=== PATIENT | male | born 1935 | race Caucasian/White ===

== ENCOUNTER 2017-12-03 16:32 | Emergency (ER) | payer MEDICARE ==
[2017-12-03 17:24] LABS: Bilirubin Negative (Negative); Blood, Urine Small (Negative); Clarity Clear (Clear); Glucose, Urine (Dipstick) Negative (Negative); Leukocyte Negative (Negative); Nitrite Negative (Negative); Protein, Urine (Dipstick) 30 mg/dL (Neg-Trace); Urobilinogen 0.2 mg/dL (0.2-1.0); pH, Urine 6.5 (5.0-9.0)
[2017-12-03 17:33] LABS: Bacteria/HPF Rare-Few HPF (None Seen); RBC/HPF 0-3 HPF (0-3); Squamous Epithelial None Seen HPF (0-3); WBC/HPF None Seen HPF (0-3)
[2017-12-03] MEDS ORDERED: Acetaminophen 500 MG TAB ONE (18:08)
--- NOTE | 2017-12-03 18:09 | RAD ---
PORTABLE CHEST: History: Cough, fever. Comparison: 01-14-14 FINDINGS: Heart size is within normal limits. There are chronic appearing lung changes seen. No focal infiltrat monalisa process. Right humeral prosthesis is present. IMPRESSION: Chronic lung change. POS: [facility]
== END 2017-12-03 18:11 | disposition home or self-care (01) ==
LOC: SCSER 16:32
DX: J11.1 Influenza due to unidentified influenza virus with other respiratory manifestations (principal); F17.200 Nicotine dependence, unspecified, uncomplicated; Z79.899 Other long term (current) drug therapy
CPT/HCPCS: 71045; 81003; 81015

== ENCOUNTER 2017-12-05 18:15 | Emergency (ER) | payer MEDICARE ==
--- NOTE | 2017-12-05 19:18 | RAD ---
PA AND LATERAL CHEST: 12/05/17 HISTORY: Cough. COMPARISON: 12/03/17 study. Heart size is within normal limits. There are atherosclerotic changes of the aorta. Chronic appearing lung changes are seen. I do not appreciate a definitive significant change since the previous exam. There is some question of whether some of the changes in the right mid lung field may be slightly inc reased. Differences could be technique related. IMPRESSION: Marked chronic lung change, not definitive infiltrate, although the changes in the right mid lung fie ld may be slightly increased. POS: [facility]
[2017-12-05 20:20] LABS: #Basophils 0.1 thou/uL (0.0-0.2); #Lymphocytes 1.3 thou/uL (1.20-3.40); #Monocytes 1.3 thou/uL (0.11-0.59); #Neutrophils 10.9 thou/uL (1.40-6.50); %Basophils 0.8 % (0.0-1.0); %Lymphocytes 9.3 % (21.0-51.0); %Monocytes 9.4 % (0.0-10.0); %Neutrophils 80.5 % (42.0-75.0); Hemoglobin 13.1 g/dL (14.0-18.0); Mean Corpuscular HGB CONC 33.6 g/dL (32.0-36.0); Mean Corpuscular Hemoglobin 31.6 pg (27.0-31.0); Mean Corpuscular Volume 93.9 fl (80.0-94.0); Mean Platelet Volume 9.1 fL (7.4-10.4); Platelet Count 130 thou/uL (130-400); Red Blood Cell (RBC) Count 4.16 mill/uL (4.70-6.10); White Blood Cell (WBC) Count 13.5 thou/uL (4.8-10.8)
[2017-12-05 20:34] LABS: ALT (SGPT) 19 U/L (8-55); AST (SGOT) 30 U/L (5-34); Albumin 3.5 g/dL (3.4-4.8); Alkaline Phosphatase 66 U/L (40-150); Anion Gap 16 mmol/L (10-20); BUN (Urea Nitrogen) 25 mg/dL (8.4-25.7); Bilirubin, Total 0.8 mg/dL (0.2-1.2); Calc. Creatinine Clearance 0 mL/min (70-130); Calcium 9.3 mg/dL (7.8-10.44); Carbon Dioxide 22 mmol/L (23-31); Chloride 102 mmol/L (98-107); Estimated GFR-MDRD 76; Globulin 3.2 g/dL (2.4-3.5); Glucose 134 mg/dL (83-110); Potassium 3.7 mmol/L (3.5-5.1); Protein, Total 6.7 g/dL (5.8-8.1); Sodium 136 mmol/L (136-145)
[2017-12-05] MEDS ORDERED: Azithromycin 250 MG TAB ONE (20:46)
== END 2017-12-05 22:32 | disposition home or self-care (01) ==
LOC: SCSER 18:15
DX: J11.1 Influenza due to unidentified influenza virus with other respiratory manifestations (principal); J44.9 Chronic obstructive pulmonary disease, unspecified; F17.200 Nicotine dependence, unspecified, uncomplicated; Z79.899 Other long term (current) drug therapy
CPT/HCPCS: 36415; 71046; 80053; 85025; 94640; 99406; J7620